=== PATIENT | female | born 1990 | race Caucasian/White ===

== ENCOUNTER 2017-08-22 08:47 | Emergency (ER) | payer SELFPAY | END 2017-08-22 09:50 | disposition home or self-care (01) | LOC: ERS 08:47 | DX: J11.1 Influenza due to unidentified influenza virus with other respiratory manifestations (principal) | CPT/HCPCS: 87804; 99283 ==

== ENCOUNTER 2019-01-24 08:31 | Outpatient (CLI) | payer OTHER ==
--- NOTE | 2019-01-24 10:14 | ULT ---
OB ULTRASOUND: Date: 01/24/19 HISTORY: Evaluate anatomy. TECHNIQUE: Sagittal and transverse imaging of gravid uterus performed. FINDINGS: Limited evaluation of the lower uterine segment due to shadowing. Cephalic presentation. Limited eval uation of the intracranial structures due to lie. Anterior placenta. Placenta tip is not appreciated. Presence or absence of previa cannot be commented upon. There is a soft tissue echotexture focus in the anterior uterine wall measuring 4.5 x 7.1 x 10.0 cm. This may represent a focal area of contraction versus uterine leiomyoma. Other etiologies cannot be e xcluded and short-term follow-up imaging is recommended. There are heart tones at a rate of 153 beats/minute. Biometry: BPD: 4.71 cm, 20 weeks/2 days HC: 17.79 cm, 20 weeks/2 days AC: 16.36 cm, 21 weeks/3 days FL: 3.43 cm, 20 weeks/6 days Average age by sonography is 20 weeks/5 days. Amniotic fluid index is 14.85 cm. Survey: The following structures are adequately demonstrated and appear to be normal: 4 chamb er heart, cord insertion, 3 vessel cord, urinary bladder, and stomach. Limited evaluation of the cere bellum, cisterna magna, kidneys, spine, nose, and lips. IMPRESSION: 1. Single intrauterine gestation with heart tones. Gestational age by sonography is 20 weeks/5 days. 2. survey as above. survey is incomplete. 3. Complex soft tissue echotexture of anterior uterine wall which may represent a persistent contrac tion or possibly uterine leiomyoma. Short-term follow-up imaging is recommended. CODE T. POS: OFF
== END 2019-01-24 08:32 | disposition home or self-care (01) ==
LOC: BICULT 08:31
PROVIDERS: ATTEND Family Medicine
DX: Z34.82 Encounter for supervision of other normal pregnancy, second trimester (principal); Z3A.20 20 weeks gestation of pregnancy
CPT/HCPCS: 76805

== ENCOUNTER 2019-03-24 11:50 | Day surgery (SDC) | payer OTHER ==
[2019-03-24 12:17] VITALS: BP 119/70; TEMP 98; BMI 29.3
[2019-03-24] MEDS ORDERED: hydrALAZINE 20 MG/ML VIAL SLOW IVP PRN (12:43)
[2019-03-24 13:13] LABS: Bilirubin Negative (Negative); Blood, Urine Negative (Negative); Clarity Clear (Clear); Glucose, Urine (Dipstick) Normal (Negative); Leukocyte Negative Leu/uL (Negative); Nitrite Negative (Negative); Protein, Urine (Dipstick) Negative (Neg-Trace); RBC/HPF 0-3 HPF (0-3); Squamous Epithelial 0-3 HPF (0-3); Urobilinogen Normal mg/dL (Less than 2); WBC/HPF 0-3 HPF (0-3)
[2019-03-24 13:22] LABS: FFN Internal QC Analyzer PASS (PASS); FFN Internal QC Cassette PASS (PASS); Fetal Fibronectin Negative (Negative)
[2019-03-24 13:25] LABS: Bacteria/HPF None Seen HPF (None Seen)
--- NOTE | 2019-03-24 14:42 | PRG ---
DATE OF SERVICE: 03/24/2019 PRIMARY OB: Dr. Ru Francis. CHIEF COMPLAINT: Back pain, pelvic pressure, and uterine contractions. HISTORY OF PRESENT ILLNESS: The patient is a 29-year-old G3, P2 female with an intrauterine at 29 weeks gestation, who is presenting to Labor and Delivery after concerns of having abdominal pains and contractions becoming closer and closer together to close to 7 minutes apart. The patient also reports having lower back pain, that is worse with rolling over in bed. The patient came in concerning that she may be going into labor. The patient denies any vaginal bleeding or leakage of fluid. She denies any urinary urgency or frequency. She denies any fall or trauma, any fever, headache, chest pain, shortness of breath. She has had some dizziness from time to time, that she has attributed due to and some nausea, but denies vomiting. The patient also has been experiencing constipation on occasion, but has not been a chronic problem. Denies any new rashes, hip problems, knee problems, or muscle weakness. PAST MEDICAL HISTORY: Negative. PAST SURGICAL HISTORY: Appendectomy and parathyroidectomy. ALLERGIES: CIPROFLOXACIN, CODEINE, SULFA. MEDICATIONS: vitamin. SOCIAL HISTORY: Denies drug, alcohol, or tobacco use. OB LABS: Unavailable at time of dictation. REVIEW OF SYSTEMS: Per history of present illness. PHYSICAL EXAMINATION: VITAL SIGNS: Blood pressure 119/70, heart rate of 62, saturating 100% on room air, temperature 98.0. GENERAL: She appears to be in no acute distress. She is alert, oriented, cooperative, and pleasant to interact with. HEENT: Head is normocephalic, atraumatic. LUNGS: Clear to auscultation bilaterally. HEART: Regular rate and rhythm. ABDOMEN: Gravid and soft. She does have some lower pelvic pain with palpation, which she says she has been having for a couple of weeks now. : Vulva is without masses, lesions, or erythema. Vagina is moist and rugated with minimal discharge. Cervix is visibly closed. On digital exam, cervix is closed. Fetus feels to be in vertex presentation through the vaginal wall. heart tracing shows baseline in the 140s with moderate long-term variability with positive accelerations appropriate for 29 weeks gestation. Tocometer not showing any contractions over a course of about an hour and 15 minutes. UA shows negative for ketones, nitrites, leukocyte esterase, white blood cells, and bacteria. fibronectin is negative. VPIII is pending. ASSESSMENT AND PLAN: The patient is a 29-year-old female with an intrauterine at 29 weeks gestation, presents for concerns of abdominal pain, back pain, and pressure. The patient has no evidence of labor at this time. Cervix is closed with a negative fibronectin, and head is not engaged. There is no evidence of urinary tract infection. VPIII is still pending. The patient is being discharged home without any evidence of labor, and reassurance has been given. Fetus has a reassuring tracing for gestational age. The patient is to follow up with her primary OB, Dr. Francis, as scheduled. Addendum: VP3 is neg Pt contacted Job ID: [id number] [facility]
== END 2019-03-24 13:35 | disposition home or self-care (01) ==
LOC: L&D/OP 11:50
PROVIDERS: ATTEND Family Medicine
DX: O99.89 Other specified diseases and conditions complicating pregnancy, childbirth and the puerperium (principal); R10.9 Unspecified abdominal pain; M54.5 Low back pain; Z88.1 Allergy status to other antibiotic agents; Z88.2 Allergy status to sulfonamides; Z88.5 Allergy status to narcotic agent; Z3A.29 29 weeks gestation of pregnancy
CPT/HCPCS: 59025; 81001; 82731; 87480; 87510; 87660; 99285

== ENCOUNTER 2019-04-21 13:16 | Day surgery (SDC) | payer OTHER ==
[2019-04-21 14:08] VITALS: BMI 29.3
[2019-04-21] MEDS ORDERED: Acetaminophen 325 MG TAB PO SCH (14:30)
[2019-04-21 14:49] LABS: Bilirubin Negative (Negative); Blood, Urine Negative (Negative); Clarity Clear (Clear); Glucose, Urine (Dipstick) Normal (Negative); Leukocyte Negative Leu/uL (Negative); Nitrite Negative (Negative); Protein, Urine (Dipstick) Negative (Neg-Trace); RBC/HPF 0-3 HPF (0-3); Squamous Epithelial 0-3 HPF (0-3); Urobilinogen Normal mg/dL (Less than 2); WBC/HPF 0-3 HPF (0-3)
[2019-04-21 14:55] LABS: Bacteria/HPF 1+ HPF (None Seen)
[2019-04-21 15:02] LABS: FFN Internal QC Analyzer PASS (PASS); FFN Internal QC Cassette PASS (PASS); Fetal Fibronectin Negative (Negative)
--- NOTE | 2019-04-22 01:10 | SS ---
DATE OF ADMISSION: 04/21/2019 DATE OF DISCHARGE: 04/21/2019 REGULAR PHYSICIAN: Ru Francis MD. EVALUATING PHYSICIAN: Rogelio Medley MD CHIEF COMPLAINT: Cramping at home, pelvic pressure, vaginal discharge. HISTORY OF PRESENT ILLNESS: Ms. Dudley is a 29-year-old white G3, P-2-0-0-2 with an estimated date of confinement of 06/09/2019, who presents complaining of intermittent cramps and pelvic pressure over the last 12-24 hours. She also states that she has had some vaginal discharge. She denies ruptured membranes or vaginal bleeding. Her care has been with Dr. Francis and has been uncomplicated. PAST OBSTETRICAL HISTORY: 2 vaginal deliveries, the earliest at 36-1/2 weeks. PAST MEDICAL HISTORY: None. PAST SURGICAL HISTORY: Appendectomy, parathyroidectomy, and a LEEP procedure. CURRENT MEDICATIONS: vitamins and Prilosec over the counter p.r.n. ALLERGIES: CODEINE, WHICH GIVES HER SHORTNESS OF BREATH AND BACTRIM AND CIPRO, WHICH GAVE HER NAUSEA AND VOMITING. SOCIAL HISTORY: She denies tobacco, alcohol, or drug use. FAMILY HISTORY: Unremarkable. REVIEW OF SYSTEMS: She denies nausea, vomiting, fever, chills, ruptured membranes, or vaginal bleeding. PHYSICAL EXAMINATION: VITAL SIGNS: In triage, her vital signs are stable and she is afebrile. ABDOMEN: Soft, gravid, and nontender. heart rate tracing is stable. Initially, there was some mild irritability that went away with oral hydration. LABORATORY DATA: UA returns unremarkable. fibronectin is negative. HEAD BAGGAGE PORTER-III shows only the presence of Luz Maria. ASSESSMENT: 1. 33-week intrauterine . 2. No evidence of labor. 3. Yeast vaginitis. PLAN: The patient was given a prescription for Diflucan 150 mg one tablet x1 with a single refill. She was given complete labor precautions and states that she has an appointment with Dr. Francis this week. Job ID: [id number]
== END 2019-04-21 17:02 | disposition home health service (06) ==
LOC: L&D/OP 13:16
PROVIDERS: ATTEND Family Medicine
DX: O98.813 Other maternal infectious and parasitic diseases complicating pregnancy, third trimester (principal); B37.3 Candidiasis of vulva and vagina; Z3A.33 33 weeks gestation of pregnancy; Z88.1 Allergy status to other antibiotic agents; Z88.5 Allergy status to narcotic agent
CPT/HCPCS: 81003; 82731; 87480; 87510; 87660

== ENCOUNTER 2019-04-24 13:18 | Inpatient (IN) | payer OTHER ==
[2019-04-24 14:14] VITALS: BP 114/69; TEMP 98.6; BMI 29.3
[2019-04-24 14:23] LABS: Amnisure Test No Membranes Rupture (No Rupture)
[2019-04-24 14:24] LABS: Amnisure Internal Control QC ACCEPTABLE (ACCEPTABLE)
[2019-04-24] MEDS ORDERED: hydrALAZINE 20 MG/ML VIAL SLOW IVP PRN (16:12)
[2019-04-24] MEDS ORDERED: Ondansetron PF 4 MG/2 ML Vial IVP PRN (16:12)
[2019-04-24] MEDS ORDERED: Lactated Ringer's 1,000 ML IV SCH (16:15)
[2019-04-24] MEDS ORDERED: Bicillin LA 2.4 MILL.UNITS/4 ML SYRINGE IM SCH (16:30)
[2019-04-24] MEDS ORDERED: Penicillin G Potassium 5 MILL.UNITS in Sodium Chloride 0.9% 100 ML IVPB SCH (16:30)
[2019-04-24] MEDS: NIFEdipine 10 MG CAP PO SCH ×4 (17:40→23:55)
[2019-04-24] MEDS: Betamet Acet/Betamet Na Ph 30 MG/5 ML VIAL IM SCH (18:00)
[2019-04-24] MEDS: Acetaminophen 500 MG TAB PO PRN ×2 (18:30→23:56)
[2019-04-24] MEDS: Lactated Ringer's 1,000 ML IV SCH (20:54)
--- NOTE | 2019-04-24 22:34 | HP ---
PRIMARY OB: Dr. Ru Francis. CHIEF COMPLAINT: Leaking of fluid and pelvic pain. HISTORY OF PRESENT ILLNESS: The patient is a 29-year-old, G4, P2 female with an intrauterine at 33 weeks and 3 days, presenting to Labor and Delivery with intermittent leakage of fluid. This has been going on for several days now and pelvic pain and pressure. The patient was last seen here on Sunday and was noted to have a closed cervix and -1 station and was told that she had a yeast infection, was treated and discharged home with a negative fibronectin. The patient today is persistently having pelvic pain and lower back pain, pressure, and intermittent leaking fluid still. The patient and her family are concerned as they live 45 minutes away, and her last baby came rather quickly when she went into Labor. The patient denies any fever, fall, headache, trauma, chest pain, shortness of breath, nausea, vomiting, diarrhea, constipation, hip problems, knee problems, or muscle weakness. Denies any urinary urgency or frequency. She does report she took her medication for her yeast infection. PAST MEDICAL HISTORY: Negative. PAST SURGICAL HISTORY: Appendectomy and parathyroidectomy. ALLERGIES: CIPROFLOXACIN, CODEINE, AND SULFA. MEDICATIONS: 1. vitamins. 2. A recent dose of Diflucan. SOCIAL HISTORY: Denies drug, alcohol, or tobacco use. OB LABS: Unavailable at time of dictation. REVIEW OF SYSTEMS: Per HPI. PHYSICAL EXAMINATION: VITAL SIGNS: Blood pressure 114/69, heart rate of 71, saturating 100% on room air, and respiratory rate of 18. GENERAL: The patient appears to be in no acute distress. She is alert, oriented, cooperative, and pleasant to interact with. HEAD: Normocephalic and atraumatic. LUNGS: Clear to auscultation bilaterally. HEART: Has regular rate and rhythm. ABDOMEN: Gravid. She does have some tenderness to palpation, particularly in lower pelvis. BACK: She has no SI joint tenderness or paravertebral tenderness. : Vulva is without masses, lesions, or erythema. Vagina is moist with some discharge present. Cervix is difficult to visualize due to vaginal collapse. There is no pooling on Valsalva or pressure or cough. On digital exam, the patient is noted to be 1 cm, almost 2 cm dilated; 40% effaced; about 0 station; and head and sutures were palpable through the cervix to the internal os. heart tracing shows the fetus with a baseline in the 140s with moderate long-term variability, positive 15 x 15 accelerations. Tocometer initially showing contractions about every 2 minutes. With repositioning of the monitor, those contractions are more difficult to see. LABORATORY DATA: AmniSure test is negative. VPIII is pending. ASSESSMENT AND PLAN: The patient is a 29-year-old multiparous female with an intrauterine at 33 weeks and 3 days, having noted cervical change in the last few days to 1 to 2 cm, 40% effaced, and 0 station. The patient does have contractions visible on the monitor. Though she does not appear subjectively laboring, her cervix has made change. The patient will be admitted to the hospital for steroid administration and Procardia for tocolysis. Her primary OB, Dr. Ru Francis, has been notified, who will be assuming care. Fetus has reactive NST and category 1 tracing. Job ID: [id number]
[2019-04-25] MEDS: Lactated Ringer's 1,000 ML IV SCH ×2 (05:39→16:07)
[2019-04-25] MEDS: NIFEdipine 10 MG CAP PO SCH ×3 (05:56→17:58)
[2019-04-25] MEDS: Acetaminophen 500 MG TAB PO PRN (14:03)
[2019-04-25] MEDS: Betamet Acet/Betamet Na Ph 30 MG/5 ML VIAL IM SCH (17:59)
[2019-04-26] MEDS: NIFEdipine 10 MG CAP PO SCH ×3 (00:28→12:00)
[2019-04-26] MEDS: Lactated Ringer's 1,000 ML IV SCH (00:30)
== END 2019-04-26 14:00 | disposition home health service (06) | DRG 833 ==
LOC: L&D/OP 13:18 → OBSVTOIN 18:04 → L&D 18:04
PROVIDERS: ADMIT Family Medicine; ATTEND Family Medicine
DX: O26.893 Other specified pregnancy related conditions, third trimester (principal); Z3A.33 33 weeks gestation of pregnancy; R10.9 Unspecified abdominal pain
CPT/HCPCS: 36415; 84112; 86850; 86900; 86901; 87480; 87510; 87660; 99285; J0561; J0702; J2540; J3490

== ENCOUNTER 2019-05-02 10:47 | Day surgery (SDC) | payer OTHER ==
[2019-05-02 11:30] VITALS: TEMP 98.9; BMI 30.3
[2019-05-02] MEDS ORDERED: hydrALAZINE 20 MG/ML VIAL SLOW IVP PRN (13:08)
--- NOTE | 2019-05-05 08:07 | PRG ---
DATE OF SERVICE: 05/02/2019 PRIMARY OB: Ru Francis MD. CHIEF COMPLAINT: Abdominal pain. HISTORY OF PRESENT ILLNESS: The patient is a 29-year-old G4, P2 female with an intrauterine at 34 weeks and 4 days, presenting to Labor and Delivery with complaints of uterine contractions. The patient recently was admitted last week for steroids. The patient was admitted on the 24 of April for uterine contractions and documented cervical change from 1-2 cm and was given steroid administration and Procardia for tocolysis. The patient was discharged home with arrest of contractions and cervical change and has re-presented for contractions again that she reports had been feeling about every 10 minutes. The patient denies any vaginal bleeding or leakage of fluid. The patient denies any recent fever, fall, headache, chest pain, shortness of breath, nausea, vomiting, diarrhea, constipation, hip problems, knee problems, muscle weakness, any new rashes, vaginal bleeding or leakage of fluid, urinary urgency or frequency. PAST MEDICAL HISTORY: Negative. PAST SURGICAL HISTORY: She has had an appendectomy and parathyroidectomy. ALLERGIES: CIPROFLOXACIN, CODEINE, AND SULFA. MEDICATIONS: vitamins. SOCIAL HISTORY: Denies drug, alcohol, or tobacco use. OB LABS: Unavailable at the time of dictation. REVIEW OF SYSTEMS: Per HPI. PHYSICAL EXAMINATION: VITAL SIGNS: Blood pressure 113/67, heart rate of 67, respiratory rate of 18, temperature 98.8. GENERAL: She appears to be in no acute distress. She is alert, oriented, cooperative, and pleasant to interact with. HEAD: Normocephalic, atraumatic. LUNGS: Clear to auscultation bilaterally. HEART: Regular rate and rhythm. ABDOMEN: Gravid, nontender. EXTREMITIES: Nontender, nonedematous. Cervix is 1, very posterior, 60% effaced, and -1 station. Findings were unchanged after 2 hours. heart tracing shows the fetus with a baseline in the 130s with moderate long-term variability, positive 15 x 15 accelerations, no decelerations. Tocometer showing one or two isolated contractions. ASSESSMENT AND PLAN: The patient is a 29-year-old multiparous female, with an intrauterine at 34 weeks and 4 days, status post steroids approximately a week ago, here for uterine contractions, but no evidence of labor. Fetus has a category 1 tracing and reactive NST. The patient is being discharged to home with labor precautions. Job ID: [id number]
== END 2019-05-02 14:59 | disposition home or self-care (01) ==
LOC: L&D/OP 10:47
PROVIDERS: ATTEND Family Medicine
DX: O47.03 False labor before 37 completed weeks of gestation, third trimester (principal); Z3A.34 34 weeks gestation of pregnancy; Z88.1 Allergy status to other antibiotic agents; Z88.2 Allergy status to sulfonamides; Z88.5 Allergy status to narcotic agent
CPT/HCPCS: 99283

== ENCOUNTER 2019-05-06 12:51 | Day surgery (SDC) | payer OTHER ==
[2019-05-06 13:19] VITALS: BMI 30.3
[2019-05-06] MEDS ORDERED: HYDROcodone/Acetaminophen 5/325 mg Tablet PO SCH (18:45)
== END 2019-05-06 18:41 | disposition home or self-care (01) ==
LOC: L&D/OP 12:51
PROVIDERS: ATTEND Family Medicine
DX: O47.9 False labor, unspecified (principal); Z88.1 Allergy status to other antibiotic agents; Z88.2 Allergy status to sulfonamides; Z88.5 Allergy status to narcotic agent
CPT/HCPCS: 99283

== ENCOUNTER 2019-05-13 18:54 | Day surgery (SDC) | payer OTHER ==
[2019-05-13 19:27] VITALS: BP 113/73; TEMP 98.4; BMI 29.9
[2019-05-13] MEDS ORDERED: hydrALAZINE 20 MG/ML VIAL SLOW IVP PRN (19:58)
[2019-05-13] MEDS ORDERED: Lactated Ringer's 1,000 ML IV SCH (20:00)
[2019-05-13] MEDS ORDERED: Morphine 4 MG/ML VIAL IM SCH (20:00)
[2019-05-13] MEDS ORDERED: Morphine 4 MG/ML VIAL SLOW IVP SCH (20:00)
--- NOTE | 2019-05-13 22:25 | PRG ---
DATE OF SERVICE: 05/13/2019 PRIMARY OB: Dr. Ru Francis. CHIEF COMPLAINT: Pelvic pain. HISTORY OF PRESENT ILLNESS: The patient is a 29-year-old G4, P2 female with an intrauterine at 36 weeks and a day, who is presenting to Labor and Delivery today with increasing pelvic pain and lower back pain. The patient has had these pelvic pains long-standing. She also reports that she has been having more frequent uterine contractions, though they do vary in frequency and intensity. She was last checked by Dr. Francis yesterday and was noted to be 2 cm. She was also noted to have a cervical exam on the 06 of May at 1.5 cm. The patient reports that her primary concern is the discomfort she feels from the sharp pelvic pains that she has in her lower pelvis and her back. She denies any recent illness, fever, fall, headache, or chest pain. She does report some shortness of breath, she attributes to the . Reports some nausea. Denies vomiting. Reports some diarrhea and recent constipation. Denies any new rashes. Reports hip problems, lower back problems. Denies muscle weakness. Denies vaginal bleeding or leakage of fluid. She does report she lost her mucus plug previous days. The patient denies urinary urgency or frequency. PAST MEDICAL HISTORY: Negative. PAST SURGICAL HISTORY: Appendectomy and parathyroidectomy. ALLERGIES: CIPROFLOXACIN, CODEINE, AND SULFA. MEDICATIONS: vitamins. SOCIAL HISTORY: Denies drug, alcohol, or tobacco use. OB LABORATORY DATA: Unavailable at time of dictation. REVIEW OF SYSTEMS: Per HPI. PHYSICAL EXAMINATION: VITAL SIGNS: Blood pressure 113/73, heart rate of 80, respiratory rate of 18, saturating 99% on room air, temperature 98.4. GENERAL: The patient appears to be in no acute distress. She is alert, oriented, cooperative, and pleasant to interact with. HEENT: Head is normocephalic, atraumatic. LUNGS: Clear to auscultation bilaterally. HEART: Regular rate and rhythm. ABDOMEN: Gravid and soft. She does have some lower pelvic bilateral pains with deviation of the uterus. She has some SI joint tenderness. EXTREMITIES: Nontender, nonedematous. : Her cervical exam is 260 and -2 station per nursing staff, which is essentially unchanged from about a week ago. heart tracing performed for pelvic pain and . Fetus noted having a baseline in the 130s with moderate long-term variability, positive accelerations, no decelerations. She has infrequent contractions with irritability. ASSESSMENT AND PLAN: The patient is a 29-year-old female with an intrauterine at 36 weeks and a day, here with musculoskeletal pains of and intermittent contractions. The patient has no evidence of labor at this time as her cervical exam has essentially been changed in the last week. The patient's primary concern is pain control. We have given her 2 mg of morphine IV and 6 mg IM with a liter of bolus of fluid. Since that time, the patient reports that she is feeling improvement of her pain and is comfortable being discharged home. The patient has been counseled to use moist heat to help with the discomfort as well as two Tylenol 3 times a day. The patient is allergic to codeine, has had undesirable reaction to hydrocodone. The patient has been encouraged to keep her appointment with Dr. Francis as scheduled. Fetus is reassuring. The patient has been given labor precautions. Job ID: [id number]
== END 2019-05-13 21:10 | disposition home or self-care (01) ==
LOC: L&D/OP 18:54
PROVIDERS: ATTEND Family Medicine
DX: O47.03 False labor before 37 completed weeks of gestation, third trimester (principal); Z3A.36 36 weeks gestation of pregnancy; Z88.1 Allergy status to other antibiotic agents; Z88.2 Allergy status to sulfonamides; Z88.5 Allergy status to narcotic agent
CPT/HCPCS: 96360; 96372; 96375; 99283; J2270

== ENCOUNTER 2019-05-21 09:34 | Inpatient (IN) | payer OTHER ==
[~2019-05-21 09:34] MED LIST: Bupivacaine 0.25% HCL 30 ML VIAL ONE; Sodium Chloride 0.9% (PF) 10 ML VIAL ONE
[2019-05-21 10:28] VITALS: BMI 30.8
[2019-05-21] MEDS ORDERED: FLU VACC QS2019-20(6MOS UP)/PF 60 MCG/0.5 ML SYRINGE IM ONE (10:45)
[2019-05-21 10:55] LABS: Amnisure Test RUPTURE DETECTED (No Rupture)
[2019-05-21 10:56] LABS: Amnisure Internal Control QC ACCEPTABLE (ACCEPTABLE)
[2019-05-21] MEDS ORDERED: hydrALAZINE 20 MG/ML VIAL SLOW IVP PRN (11:55)
[2019-05-21] MEDS ORDERED: HYDROcodone/Acetaminophen 5/325 mg Tablet PO PRN (11:55)
[2019-05-21] MEDS ORDERED: Ibuprofen 800 MG TAB PO PRN (11:55)
[2019-05-21] MEDS ORDERED: NS / Oxytocin 40 units/1000ml 1,000 ML IV PRN (11:55)
[2019-05-21] MEDS ORDERED: Butorphanol Tartrate 1 MG/ML VIAL SLOW IVP PRN (11:55)
[2019-05-21] MEDS ORDERED: Lidocaine 1% (PF) 30 ML VIAL SC PRN (11:55)
[2019-05-21] MEDS ORDERED: Promethazine HCl 25 MG/ML VIAL IM PRN ×2 (11:55→20:02)
[2019-05-21] MEDS ORDERED: Ondansetron PF 4 MG/2 ML Vial IVP PRN ×2 (11:55→20:02)
--- NOTE | 2019-05-21 12:08 | PDOC.LDHP ---
Labor and Delivery H&P Chief complaint: loss of fluid (Since 2029 last PM...soaked a pad) HPI: 29yo ( X2)...EDC 06/09/19...38 weeks, with LOF. HX steroids at 33 weeks this IUP. No VB No fevers Dr Francis has asked us to cover Current gestational age (weeks): 38 Due date: 06/09/19 Grav: 4 Para: 2 Current complications: none Abnormal US findings: No Current medications: pre- vitamins Allergies/Adverse Reactions: Allergies Allergy/AdvReac Type Severity Reaction Status Date / Time ciprofloxacin [From Cipro] Allergy Verified 05/21/19 10:20 ciprofloxacin HCl Allergy Verified 05/21/19 10:20 [From Cipro] codeine Allergy Verified 05/06/19 13:16 sulfamethoxazole Allergy Verified 05/21/19 10:20 [From Bactrim] trimethoprim [From Bactrim] Allergy Verified 05/21/19 10:20 Social history: none - Physical Exam Vital signs reviewed and normal: yes (117/76 93 Afebrile) General: NAD Heart: RRR Lungs: CTAB Abdomen: gravid Extremeties: no edema FHT: category 1 [place] contractions every: none; only irritability - Vaginal Exam cm dilated: 2 (RN exam) Effacement: 50% Station: -1 - Assessment L&D Assessment: term rupture in membranes (Early term, PROM...GBS neg. I am at bedside now. Plan for cytotec reviewed.) - Plan Plan: admit to L&D, cervical ripening, labor augmentation if indicated, informed consent obtained, anesthesia consult for pain management
[2019-05-21 12:24] LABS: Hemoglobin 12.3 g/dL (12.0-16.0); Mean Corpuscular HGB CONC 34.6 g/dL (32.0-36.0); Mean Corpuscular Hemoglobin 31.4 pg (27.0-31.0); Mean Corpuscular Volume 90.8 fL (78.0-98.0); Mean Platelet Volume 9.1 fL (7.4-10.4); Platelet Count 232 thou/uL (130-400); Red Blood Cell (RBC) Count 3.91 mill/uL (4.20-5.40); White Blood Cell (WBC) Count 13.7 thou/uL (4.8-10.8)
[2019-05-21] MEDS: Misoprostol 100 MCG TAB VAG SCH (12:49)
[2019-05-21] MEDS: Lactated Ringer's 1,000 ML IV SCH (12:50)
[2019-05-21 13:19] LABS: HBSAg Index 0.12 S/CO (0-0.99); HIV (1/2) Antibody/Antigen Non-Reactive (NonReactive); HIV 1/2 INDEX 0.06 S/CO (<1.00); Hep B Surf Ag Non-Reactive S/CO (NonReactive); Syphilis Antibody Nonreactive (Nonreactive); Syphilis Antibody Index 0.04 S/CO (<1.00 Non-Reactive)
--- NOTE | 2019-05-21 14:56 | PDOC.LDPN ---
Labor & Delivery Progress Note - Objective Vital signs reviewed and normal: yes General: NAD Uterine fundus: non tender SVE: By Me Dilation: 3 Effacement: 50% Station: -1 FHT: category 1 [place] contractions every: irregular Other exam findings: Clear fluid noted - Assessment (1) labor without delivery, third trimester Code(s): O60.03 - LABOR WITHOUT DELIVERY, THIRD TRIMESTER Current Visit: No Status: Acute Plan: continue plan of care, labor augmentation (Pitocin to start at 3 hrs from cytotec. I reviewed POC with her and her )
[2019-05-21] MEDS: NS w/ Oxytocin 10 units 500 ML IV SCH (16:20)
[2019-05-21] MEDS ORDERED: Fentanyl 4 mcg/Bup 0.1% Cadd 100 ML ONE (19:16)
[2019-05-21] MEDS ORDERED: Lidocaine 1.5%/Epinephrine 1:200,000 5 ML AMPUL IJ ONE (19:37)
[2019-05-21] MEDS ORDERED: Naloxone HCl 0.4 mg/ml Vial IVP PRN ×2 (20:02)
[2019-05-21] MEDS ORDERED: diphenhydrAMINE 50 MG/ML VIAL IVP PRN (20:02)
[2019-05-21] MEDS ORDERED: ePHEDrine/0.9% NaCl/PF SYRINGE 50 mg/10 ml SLOW IVP PRN (20:02)
[2019-05-21] MEDS ORDERED: Acetaminophen 325 MG TAB PO PRN (20:02)
[2019-05-21] MEDS ORDERED: Lactated Ringer's 500 ML IV PRN (20:02)
[2019-05-21] MEDS: Fentanyl 4 mcg/Bupivacaine 0.1% Cassette 100 ML EPIDURAL SCH (20:06)
[2019-05-21] MEDS ORDERED: Communication Order-Pharmacy FS SCH (20:15)
--- NOTE | 2019-05-21 21:25 | PDOC.LDPN ---
Labor & Delivery Progress Note - Subjective Subjective: comfortable (OSCAR in use) - Objective Vital signs reviewed and normal: yes General: NAD Uterine fundus: non tender SVE: by RN Dilation: 4 Effacement: 50% Station: -1 FHT: category 1 [place] contractions every: irregular - Assessment (1) labor without delivery, third trimester Code(s): O60.03 - LABOR WITHOUT DELIVERY, THIRD TRIMESTER Current Visit: No Status: Acute (2) PROM (premature rupture of membranes) Code(s): O42.90 - MAYDA ROM, 7TH0 BETW RUPT & ONST LABR, UNSP WEEKS OF GEST Current Visit: Yes Status: Acute Plan: continue plan of care (still latent phase..continue plan of care)
[2019-05-22] MEDS ORDERED: Fentanyl 4 mcg/Bup 0.1% Cadd 100 ML ONE ×2 (02:34→09:11)
[2019-05-22] MEDS: Fentanyl 4 mcg/Bupivacaine 0.1% Cassette 100 ML EPIDURAL SCH ×2 (02:37→09:13)
[2019-05-22] MEDS: Calcium Carbonate 500 MG ChewTAB PO PRN ×2 (03:58→08:23)
--- NOTE | 2019-05-22 06:01 | PDOC.LDPN ---
Labor & Delivery Progress Note - Subjective Subjective: other (She is tired and ready for progrees) - Objective Vital signs reviewed and normal: yes (116/78) Uterine fundus: tender to palpation SVE: by Me at 0555 Dilation: 6 Effacement: 75% Station: 0 FHT: category 1 [place] contractions every: irregular Procedures: IUPC placed - Assessment (1) labor without delivery, third trimester Code(s): O60.03 - LABOR WITHOUT DELIVERY, THIRD TRIMESTER Current Visit: No Status: Acute (2) PROM (premature rupture of membranes) Code(s): O42.90 - MAYDA ROM, 7TH0 BETW RUPT & ONST LABR, UNSP WEEKS OF GEST Current Visit: Yes Status: Acute Plan: continue plan of care, labor augmentation (I checked the patient myself at the requets of BENJAMIN Gonsalves. Brina felt she may still be 5cm as last exam. I checked the patient and she is now 6/80/0. I placed the IUPC to get more info on MVUs. She had one in earlier but it slipped out.), other (I did mentaion to her that we are not out of CS possibility until more progress (steady change) occurs. The external vaginal area is also edematous but the CX feels normal. She has had a prior LEEP and that may be a cervical factor...but unclear at this time)
[2019-05-22] MEDS: Lactated Ringer's 1,000 ML IV SCH ×2 (07:14)
[2019-05-22] MEDS: NS w/ Oxytocin 10 units 500 ML IV SCH (07:14)
[2019-05-22] MEDS ORDERED: Bicitra 30 ML UDCUP ONE (09:55)
[2019-05-22] MEDS ORDERED: Ondansetron PF 4 MG/2 ML Vial ONE (11:17)
[2019-05-22] MEDS ORDERED: NS / Oxytocin 40 units/1000ml 1,000 ML ONE (11:18)
[2019-05-22] MEDS ORDERED: Ondansetron PF 4 MG/2 ML Vial IVP SCH (11:30)
[2019-05-22] MEDS ORDERED: Bicitra 30 ML UDCUP PO SCH (11:30)
[2019-05-22] MEDS ORDERED: Dextrose 5%-Lactated Ringers 1,000 ML IV SCH (11:30)
[2019-05-22] MEDS ORDERED: Lanolin Ointment 7 GM TUBE TOP PRN (14:03)
[2019-05-22] MEDS ORDERED: Bisacodyl 10 MG SUPP PR PRN (14:03)
[2019-05-22] MEDS ORDERED: Milk Of Magnesia 30 ML UDCUP PO PRN (14:03)
[2019-05-22] MEDS ORDERED: Measles/Mumps/Rubella 10 MCG/0.5 ML VIAL SC ONE (14:03)
[2019-05-22] MEDS ORDERED: Adacel (T-DAP) 0.5 ML SYRINGE IM ONE (14:03)
[2019-05-22] MEDS ORDERED: NS / Oxytocin 40 units/1000ml 1,000 ML IV SCH (14:03)
[2019-05-22] MEDS ORDERED: hydrALAZINE 20 MG/ML VIAL SLOW IVP PRN (14:03)
[2019-05-22] MEDS ORDERED: Ondansetron PF 4 MG/2 ML Vial IVP PRN (14:03)
[2019-05-22] MEDS: Ferrous Sulfate 325 MG TAB PO SCH (15:16)
[2019-05-22] MEDS: Ibuprofen 800 MG TAB PO SCH ×2 (15:16→16:37)
[2019-05-22] MEDS: HYDROcodone/Acetaminophen 5/325 mg Tablet PO PRN ×2 (17:30→23:11)
[2019-05-22] MEDS: Docusate Calcium (SURFAK) 240 MG CAP PO SCH (21:09)
[2019-05-22] MEDS ORDERED: Sodium Chloride 0.9% 10 ML ONE (21:44)
[2019-05-23] MEDS: Ibuprofen 800 MG TAB PO SCH ×6 (01:52→21:04)
[2019-05-23 04:51] LABS: #Basophils 0.1 thou/uL (0.0-0.2); #Eosinphils 0.2 thou/uL (0.0-0.7); #Lymphocytes 2.7 thou/uL (1.20-3.40); #Monocytes 1.2 thou/uL (0.11-0.59); #Neutrophils 9.1 thou/uL (1.40-6.50); %Basophils 0.5 % (0.0-1.0); %Eosinophils 1.3 % (0.0-10.0); %Lymphocytes 20.1 % (21.0-51.0); Hemoglobin 10.3 g/dL (12.0-16.0); Mean Corpuscular HGB CONC 33.8 g/dL (32.0-36.0); Mean Corpuscular Hemoglobin 31.9 pg (27.0-31.0); Mean Corpuscular Volume 94.3 fL (78.0-98.0); Mean Platelet Volume 9.1 fL (7.4-10.4); Platelet Count 214 thou/uL (130-400); RBC Distribution Width 12.3 % (11.5-14.5); Red Blood Cell (RBC) Count 3.22 mill/uL (4.20-5.40); White Blood Cell (WBC) Count 13.2 thou/uL (4.8-10.8)
[2019-05-23] MEDS: Misoprostol 100 MCG TAB VAG SCH ×2 (07:46→07:47)
[2019-05-23] MEDS: Lactated Ringer's 1,000 ML IV SCH (07:47)
[2019-05-23] MEDS: Docusate Calcium (SURFAK) 240 MG CAP PO SCH ×2 (07:59→21:04)
[2019-05-23] MEDS: Prenatal Vitamin 1 TAB PO SCH (07:59)
[2019-05-23] MEDS: HYDROcodone/Acetaminophen 5/325 mg Tablet PO PRN ×2 (11:26→17:25)
[2019-05-23] MEDS: Ferrous Sulfate 325 MG TAB PO SCH ×2 (11:27→15:01)
--- NOTE | 2019-05-23 11:35 | DN ---
DATE OF PROCEDURE: 05/22/2019 The patient is a 29-year-old female, who delivered by term spontaneous vaginal delivery a female at 12:44 p.m. on 05/22/2019. Gestational age of 37 weeks and 3 days. weight 3588 g, Apgars 8 and 9. Placenta delivered spontaneously followed by Pitocin infusion. There were no lacerations. Estimated blood loss [address] Lito Tubbs is the delivering physician. Complications none. Counts correct. Mother and baby were stable in the room in immediate . Job ID: [id number]
--- NOTE | 2019-05-23 13:25 | DIS ---
DATE OF ADMISSION: 05/21/2019 DATE OF DISCHARGE: 05/23/2019 ADMITTING DIAGNOSIS: Premature rupture of membranes at 37 weeks' gestation. DISCHARGE DIAGNOSIS: Premature rupture of membranes at 37 weeks' gestation. PROCEDURE: Term spontaneous vaginal delivery. HOSPITAL COURSE: The patient is a 29-year-old female, who presented to Labor and Delivery with a term rupture of membranes. She had induction of labor resulting in an uncomplicated term spontaneous vaginal delivery. Her course has been uncomplicated. Today is day 1. She is tolerating p.o., voiding on her own, having decreased lochia and good pain control. PHYSICAL EXAMINATION: VITAL SIGNS: Blood pressure is 120/78, temperature 98.4, pulse is 77, respiratory rate of 20, and saturating 98% on room air. GENERAL: She appears to be in no acute distress. She is alert and oriented, cooperative and pleasant to interact with. HEENT: Head is normocephalic, atraumatic. Fundus is firm. EXTREMITIES: Nontender. Nonedematous. The patient is being discharged to home. She has instructions to follow up with Dr. Francis, her primary OB in 6 weeks. She has instructions to seek medical attention sooner if she experiences fever, increasing pain, or bleeding. The patient is being discharged home on ibuprofen 800 mg to be taken 3 times a day as needed for pain. Her postdelivery hemoglobin is 10.3, hematocrit 30.4, and platelets of 214,000. Job ID: [id number]
[2019-05-24] MEDS: HYDROcodone/Acetaminophen 5/325 mg Tablet PO PRN ×2 (02:21→08:49)
[2019-05-24] MEDS: Ibuprofen 800 MG TAB PO SCH ×2 (06:06→14:26)
--- NOTE | 2019-05-24 06:51 | PDOC.PP ---
Post Progress Note Post Day #: 2 Subjective: Patient doing well this morning. . Has not had BM yet but passing flatus. She has no concerns. PO intake tolerated: yes Flatus: yes Ambulation: yes Vital Signs (12 hours) Temp Pulse Resp BP Pulse Ox 05/23/19 20:31 98 05/23/19 19:00 98.0 F 66 16 118/65 98 Weight Weight 86.636 kg - Physical Examination General: NAD Cardiovascular: no m/r/g, RRR Respiratory: clear to auscultation bilaterally, non-labored breathing Abdominal: + bowel sounds, appropriately TTP Fundus firm & at: below umbilicus Extremities: negative homans (B) (2+ pitting edema BLE) Neurological: no gross focal deficits Psychiatric: normal affect Result Diagrams: 05/23/19 04:27 Additional Labs: Post Labs Blood Type A POSITIVE 05/21/19 12:14 Hep Bs Antigen Non-Reactive S/CO (NonReactive) 05/21/19 12:14 (1) care and examination Code(s): Z39.2 - ENCOUNTER FOR ROUTINE FOLLOW-UP Status: Acute - Assessment/Plan - - reports perineal swelling decreased, lochia decreasing - recovering well - Has follow up appt with Dr. Francis 06/25 Discharge home today.
[2019-05-24 08:26] VITALS: BP 116/71; TEMP 98.2
[2019-05-24] MEDS: Prenatal Vitamin 1 TAB PO SCH (08:49)
[2019-05-24] MEDS: Docusate Calcium (SURFAK) 240 MG CAP PO SCH (08:49)
[2019-05-24] MEDS: Ferrous Sulfate 325 MG TAB PO SCH ×2 (08:50→15:28)
== END 2019-05-24 19:05 | disposition home or self-care (01) | DRG 805 ==
LOC: L&D/OP 09:34 → L&D 14:12 → 3SW 05-22 14:23
PROVIDERS: ADMIT Family Medicine; ATTEND Family Medicine
PROC: 10E0XZZ Delivery of Products of Conception, External Approach (ICD-10-PCS; principal; 2019-05-22)
PROC: 3E033VJ Introduction of Other Hormone into Peripheral Vein, Percutaneous Approach (ICD-10-PCS; 2019-05-22)
PROC: 3E0P7VZ Introduction of Hormone into Female Reproductive, Via Natural or Artificial Opening (ICD-10-PCS; 2019-05-22)
DX: O42.90 Premature rupture of membranes, unspecified as to length of time between rupture and onset of labor, unspecified weeks of gestation (principal); O60.14X0 Preterm labor third trimester with preterm delivery third trimester, not applicable or unspecified; Z37.0 Single live birth; Z3A.37 37 weeks gestation of pregnancy
CPT/HCPCS: 36415; 51702; 84112; 85025; 85027; 86780; 86850; 86900; 86901; 87340; 87389; 99285; J1200; J2001; J2405; J2590; J3490; S0020

== ENCOUNTER 2023-02-22 08:06 | Outpatient (CLI) | payer OTHER ==
[2023-02-22 08:57] LABS: #Eosinphils 0.1 10x3/uL (0.0-0.5); #Monocytes 0.4 10x3/uL (0.0-1.1); #Neutrophils 3.3 10x3/uL (1.5-8.4); %Basophils 0.7 % (0.0-2.0); %Eosinophils 1.6 % (0.0-6.0); %Lymphocytes 30.6 % (18.0-47.0); %Neutrophils 60.1 % (40.0-75.0); Mean Corpuscular HGB CONC 32.7 g/dL (32.0-36.0); Mean Corpuscular Hemoglobin 30.6 pg (27.0-33.0); Mean Corpuscular Volume 93.4 fl (81.6-98.3); Mean Platelet Volume 11.7 fl (7.4-10.4); Platelet Count 187 10x3/uL (150-450); RBC Distribution Width 12.4 % (11.5-14.5); Red Blood Cell (RBC) Count 4.25 10x6/uL (3.90-5.03); White Blood Cell (WBC) Count 5.6 10x3/uL (3.5-10.5)
[2023-02-22 09:23] LABS: BHCG - Serum Negative (NEGATIVE); Pregs Control Background? CLEAR/WHITE (CLR/WHITE); Pregs Control Bar Appear? YES (CONTROL BAR)
== END 2023-02-22 08:07 | disposition home or self-care (01) ==
LOC: LABBT 08:06
PROVIDERS: ATTEND Orthopaedic Surgery Hand Surgery
DX: Z01.812 Encounter for preprocedural laboratory examination (principal); M67.431 Ganglion, right wrist
CPT/HCPCS: 84703; 85025

== ENCOUNTER 2023-02-26 11:33 | Day surgery (SDC) | payer OTHER ==
[2023-02-22 08:14] VITALS: BMI 25.0
[2023-02-26] MEDS ORDERED: fentaNYL PF 100 MCG/2 ML SYRINGE ONE (13:00)
[2023-02-26] MEDS ORDERED: Betamet Acet/Betamet Na Ph 30 MG/5 ML VIAL ONE (13:20)
[2023-02-26] MEDS ORDERED: Bupivacaine PF 0.5% 30 ML VIAL ONE (13:20)
[2023-02-26] MEDS ORDERED: Bacitracin Zinc Ointment 30 gm TUBE ONE (13:20)
[2023-02-26] MEDS ORDERED: CEFAZOLIN 2 GM VIAL ONE (13:58)
[2023-02-26] MEDS ORDERED: Sodium Chloride 0.9% 100 ML ONE (13:58)
[2023-02-26] MEDS ORDERED: PROPOFOL 200 MG/20 ML VIAL ONE (14:23)
[2023-02-26] MEDS ORDERED: Lidocaine 1% PF 5 ML VIAL ONE (14:23)
[2023-02-26] MEDS ORDERED: Dexamethasone 20 MG/5 ML VIAL ONE (14:23)
[2023-02-26] MEDS ORDERED: Ondansetron PF 4 MG/2 ML Vial ONE (14:23)
[2023-02-26] MEDS ORDERED: Ketorolac Tromethamine 30 MG/ML VIAL ONE (16:03)
== END 2023-02-26 17:12 | disposition home or self-care (01) ==
LOC: SDC 11:33
PROVIDERS: ATTEND Orthopaedic Surgery Hand Surgery
PROC: 0RBN0ZZ Excision of Right Wrist Joint, Open Approach (ICD-10-PCS; principal; 2023-02-26)
DX: M67.431 Ganglion, right wrist (principal); Z87.891 Personal history of nicotine dependence; Z88.6 Allergy status to analgesic agent; Z91.010 Allergy to peanuts
CPT/HCPCS: 88304; J0702; J1100; J1885; J2405; J2704; J3490; S0020